=== PATIENT | male | born 1965 | race Caucasian/White ===

== ENCOUNTER → 2021-04-26 14:37 | Outpatient (CLI) | payer SELFPAY ==
[2021-04-26 17:52] LABS: Absolute Lymphocyte Count 2.91 X10^3/uL (0.83-4.51); Absolute Neutrophil Count 6.3 X10^3/uL (2.0-7.7); Basophil# 0.08 X10^3/uL; Basophil% 0.7 % (0-1); Eosinophil# 0.58 X10^3/uL; Eosinophils% 5.3 % (0-5); Hematocrit 42.6 % (40-54); Lymphocyte # 2.91 X10^3/ul (0.83-4.51); Lymphocyte % 26.5 % (19-41); Mean Corp Hgb Conc 32.9 g/dL (32-36); Mean Corpuscular Hgb 28.3 pg (27.0-32.0); Mean Corpuscular Volume 86.2 fL (80-94); Mean Platelet Vol. 10.8 fl (6.2-12.0); Monocyte# 1.05 X10^3/uL; Monocyte% 9.5 % (0-10); NRBC Flagged by Analyzer 0 % (0-5); Neutrophil # 6.33 X10^3/uL (2.7-7.7); Neutrophil % 57.5 % (47-70); Platelet Count 241 K/mm3 (150-450); RBC Distribution Width CV 12.9 % (11.6-14.6); RBC Distribution Width SD 39.7 fl (35.1-43.9); Red Blood Count 4.94 M/mm3 (4.6-6.2)
[2021-04-26 18:05] LABS: Rheumatoid Factor < 10.0 IU/mL (<15); Uric Acid 9.3 mg/dL (3.5-7.2)
[2021-04-26 18:22] LABS: Erythrocyte Sedimentation Rate 17 mm/hr (0-20)
[2021-04-28 21:15] LABS: ANTINUCLEAR ANTIBODIES DIRECT Negative (Negative)
== END ==
PROVIDERS: Referring Provider Orthopaedic Surgery; Visit Provider Orthopaedic Surgery
DX: M19.072 Primary osteoarthritis, left ankle and foot (principal)
CPT/HCPCS: 36415; 84550; 85025; 85652; 86038; 86140; 86431

== ENCOUNTER → 2021-08-01 14:55 | Outpatient (CLI) | payer SELFPAY ==
[2021-08-01 17:42] LABS: Absolute Lymphocyte Count 2.44 X10^3/uL (0.83-4.51); Absolute Neutrophil Count 5.7 X10^3/uL (2.0-7.7); Basophil# 0.07 X10^3/uL; Basophil% 0.8 % (0-1); Eosinophil# 0.17 X10^3/uL; Eosinophils% 1.8 % (0-5); Hemoglobin 14.5 g/dL (13.0-16.5); Lymphocyte # 2.44 X10^3/ul (0.83-4.51); Lymphocyte % 26.3 % (19-41); Mean Corp Hgb Conc 33.7 g/dL (32-36); Mean Platelet Vol. 10.3 fl (6.2-12.0); Monocyte# 0.86 X10^3/uL; Monocyte% 9.3 % (0-10); NRBC Flagged by Analyzer 0 % (0-5); Neutrophil # 5.74 X10^3/uL (2.7-7.7); Neutrophil % 61.7 % (47-70); Platelet Count 361 K/mm3 (150-450); RBC Distribution Width CV 12.5 % (11.6-14.6); RBC Distribution Width SD 39.3 fl (35.1-43.9); White Blood Count 9.3 K/mm3 (4.4-11.0)
[2021-08-01 17:50] LABS: Erythrocyte Sedimentation Rate 42 mm/hr (0-20)
[2021-08-01 18:00] LABS: Rheumatoid Factor < 10.0 IU/mL (<15); Uric Acid 5.6 mg/dL (3.5-7.2)
[2021-08-04 15:42] LABS: ANTINUCLEAR ANTIBODIES DIRECT Negative (Negative)
== END ==
PROVIDERS: Referring Provider Orthopaedic Surgery; Visit Provider Orthopaedic Surgery
DX: M10.071 Idiopathic gout, right ankle and foot (principal)
CPT/HCPCS: 36415; 84550; 85025; 85652; 86038; 86140; 86431

== ENCOUNTER 2022-05-25 15:11 | Emergency (ER) | payer OTHER, SELFPAY ==
[2022-05-25 15:12] VITALS: BP 125/87; PULSE 77; RESP 16; TEMP 35.8; O2SAT 95; BMI 29.0
--- NOTE | 2022-05-25 15:31 | EX.ED.UPPERE ---
HPI History of Present Illness Chief Complaint: Laceration Informant: patient Narrative Narrative: Healthy male accidentally cut his left nondominant hand thumb when he was prepping food. He was planning to get celery. Last tetanus is unknown and will be updated today. He has some mild bleeding from the area. The laceration is on the medial aspect of the distal portion of the left thumb and part of it actually extends beyond his fingernail. No loss of function. No other injury. Pressure makes it better nothing makes it worse. PFSH PFSH Medical History Laceration Home Medications NK 05/25/22 [History Last Taken Unknown] Allergy/AdvReac Type Severity Reaction Status Date / Time chocolate flavor Allergy Shortness Verified 05/25/22 15:12 of breath Social History Smoking Status: Never smoker ROS ROS ED Gastrointestinal Gastrointestinal: Denies nausea or vomiting Integumentary Reports other Details: Laceration as in history of present illness. Neurologic Neurologic: Denies paresthesias or weakness Hematologic/Lymphatic Hematologic/Lymphatic: Reports other Details: Not on any anticoagulation. ; Denies easy bleeding or easy bruising EXAM Physical Exam Const Vital Signs: 05/25/22 15:12 Temperature 96.5 F L Temperature Source Temporal Pulse Rate 77 Respiratory Rate 16 Blood Pressure 125/87 H Blood Pressure Mean 99 Pulse Ox 95 Oxygen Delivery Method Room Air Positive well nourished and well developed General Appearance ED: well developed and NAD HEENT atraumatic Resp normal respiratory effort Extremity Extremity Narrative: Patient has a 2 cm laceration over the distal medial thumb. This is a flap type that is somewhat bisected by the corner of his thumbnail. Mild oozing from the wound. Sensation is intact. All tendon function is fully intact. Neuro no sensory deficits noted Sensorium / Orientation: alert Motor Exam: strength 5/5 throughout Psych mental status grossly normal Skin Skin Narrative: See above. MDM MDM MDM Narrative Medical decision making narrative: Procedure: Suture laceration: We discussed risk benefits and options of not suturing. We agreed to proceed. The area was cleansed with wound equipment cleaner and tester. I used alcohol swabs on the proximal aspect of the thumb. Anesthesia was 2 cc of 0.5% Marcaine with 1% lidocaine mixed 50-50. No epinephrine. Good anesthesia was achieved. The area was scrubbed with Shur-Clens and irrigated extensively with saline. The flap was irrigated under it. It was sutured with 4 interrupted 4-0 Ethilon sutures with good cosmesis and hemostasis. We discussed reasons to return and signs of infection. We discussed timing of suture removal. Discharge Plan Triage Chief Complaint: Laceration ED Provider: Celestino Sung Dx/Rx/DC Orders Clinical Impression: Laceration of left thumb Instructions: ED Laceration, Hand: All Closures Prescriptions: No Action NK Primary Care Provider: Care Physician,No Primary Referrals: Dorene Herman MD [Med Staff - [facility]] - 10 Day for suture removal Care Physician,No Primary [Primary Care Provider] - Disposition Disposition: Home, Self Care
[2022-05-25] MEDS: Diphth,Pertuss(Acell),Tet Vac 0.5 ML Vial IM (15:52)
[2022-05-25] MEDS: Bupivacaine Mpf 0.5% 30 ML VIAL INFILT (15:53)
[2022-05-25] MEDS: Lidocaine 1% (20 ml mdv) 20 ML Vial INFILT (15:53)
== END 2022-05-25 17:09 | disposition home or self-care (01) ==
PROVIDERS: Emergency Provider Emergency Medicine; Visit Provider Emergency Medicine
DX: S61.012A Laceration without foreign body of left thumb without damage to nail, initial encounter (principal); Z23 Encounter for immunization; W26.8XXA Contact with other sharp object(s), not elsewhere classified, initial encounter; Y93.G1 Activity, food preparation and clean up
CPT/HCPCS: 12001; 90471; 90715; 99284